=== PATIENT | female | born 1985 | race Caucasian/White ===

== ENCOUNTER 2017-04-23 08:45 | Emergency (ER) | payer SELFPAY ==
[~2017-04-23] VITALS: Ht 170.2 cm; Wt 57.0 kg
[2017-04-23 08:47] VITALS: BP 161/90; PULSE 76; RESP 16; TEMP 98.2; O2SAT 99
--- NOTE | 2017-04-23 08:55 | PD ---
HPI . sore throat x 5 days Chief Complaint: ENT Complaint Time Seen by Provider: 08:54 Travel History International Travel<30 days: No Contact w/Intl Traveler<30days: No Traveled to known affect area: No History of Present Illness HPI 31-year-old female here with complaints for sore throat for 5 days. Patient tells me that her throat is causing her some difficulty swallowing, that is why she decided to come into the emergency department for evaluation. Patient denies any fever or chills. She tells me that she recently got out of a terrible divorce and is no longer insured. PFSH Past Medical History ?: Not LMP: 03/31/17 Social History Tobacco Use: Yes Allergies-Medications Reported Meds & Prescriptions Reported Meds & Active Scripts Active Amoxicillin 500 Mg Tab 500 Mg PO BID 10 Days Review of Systems General / Constitutional: No: Fever Eyes: No: Visual changes HENT: Positive: Sore Throat, No: Headaches Cardiovascular: No: Chest Pain or Discomfort Respiratory: No: Shortness of Breath Gastrointestinal: No: Abdominal Pain Genitourinary: No: Dysuria Musculoskeletal: No: Pain Skin: No Rash Neurologic: No: Weakness Psychiatric: No: Depression Endocrine: No: Polydipsia Hematologic/Lymphatic: No: Easy Bruising Physical Exam Narrative GENERAL: AAO x 3, no acute distress, Well-nourished, well-developed patient. SKIN: Warm and dry. No visible rashes or bruising. HEAD: Normocephalic and atraumatic. EYES: No scleral icterus. No injection or drainage. ENT: No nasal drainage noted. Mucous membranes pink. Airway patent. Moderate posterior pharynx erythema without exudates or edema. NECK: Supple, trachea midline. No JVD. Cervical chain lymphadenopathy CARDIOVASCULAR: Regular rate and rhythm without murmurs, gallops, or rubs. RESPIRATORY: Breath sounds equal bilaterally. No accessory muscle use. No rhonchi or rales. GASTROINTESTINAL: Soft nontender EXTREMITIES: No cyanosis or edema. BACK: No obvious deformity. NEURO: CN II-12 intact, PSYCH: AAO x 3, normal affect. Data Data Last Documented VS Vital Signs Date Time Temp Pulse Resp B/P Pulse Ox O2 Delivery O2 Flow Rate FiO2 04/23/17 08:47 98.2 76 16 161/90 99 Room Air MDM Medical Decision Making Medical Screen Exam Complete: Yes Emergency Medical Condition: Yes Medical Record Reviewed: Yes Differential Diagnosis Pharyngitis, tonsillitis, less likely infectious mononucleosis Narrative Course 31-year-old female here with complaints of sore throat. On examination she has moderately erythematous posterior pharynx. I will go ahead and treat her with amoxicillin for possible acute pharyngitis likely bacterial in nature. I've opted for amoxicillin as it is free [employer]. Patient verbalized understanding of instructions, questions were answered, and thanked me for their care. I advised them if their condition worsens, please return to the nearest emergency room for further care. Diagnosis Primary Impression: Acute pharyngitis Qualified Code: J02.9 - Acute pharyngitis, unspecified etiology Patient Instructions: General Instructions Additional Instructions: Take medications as prescribed. Try salt water gargles. Do not share utensils, toothbrush, etc. If you develop difficulty breathing, please go to the nearest emergency room. Please return to emergency department if your symptoms return or worsen. Follow up with your primary care provider. Take medications as prescribed. Med/Other Pt SpecificInfo: Prescription(s) given Scripts Amoxicillin 500 Mg Bri275 Mg PO BID 10 Days Ref 0 Prov:Jacey Mercado MD 04/23/17 Disposition: 01 DISCHARGE HOME Condition: Stable Ruthy Barahona Apr 23, 2017 08:54
[2017-04-23] MEDS ORDERED: AMOX500T PO (08:59)
[2017-04-23] MEDS ORDERED: ZOLO100T PO (09:12)
[2017-04-23 09:13] VITALS: BP 143/81; TEMP 97.8
== END 2017-04-23 09:13 | disposition home or self-care (01) ==
LOC: NEPK 08:45
DX: J02.9 Acute pharyngitis, unspecified (principal); Z72.0 Tobacco use
CPT/HCPCS: 99283